=== PATIENT | male | born 1990 | race American Indian/Alaskan Native ===

== ENCOUNTER 2018-06-20 15:18 | Emergency (ER) | payer BC, OTHER ==
[2018-06-20 16:21] VITALS: BP 102/75
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
[2018-06-20] MEDS ORDERED: NORCO 7.5/325 PO ONE (17:58)
[2018-06-20] MEDS ORDERED: FLEXERIL PO ONE (17:58)
== END 2018-06-20 19:10 | disposition home or self-care (01) ==
LOC: ED 15:18
DX: S16.1XXA Strain of muscle, fascia and tendon at neck level, initial encounter (principal); M54.89 Other dorsalgia; M25.512 Pain in left shoulder; V89.2XXA Person injured in unspecified motor-vehicle accident, traffic, initial encounter; Y93.89 Activity, other specified; Y99.8 Other external cause status; Y92.410 Unspecified street and highway as the place of occurrence of the external cause
CPT/HCPCS: 99282